=== PATIENT | female | born 1990 | race Caucasian/White ===

== ENCOUNTER 2016-08-11 03:29 | Emergency (ER) | payer OTHER | END 2016-08-11 08:00 | disposition home or self-care (01) | LOC: ER1 03:29 | DX: L40.0 Psoriasis vulgaris (principal); I10 Essential (primary) hypertension | CPT/HCPCS: 99282 ==

== ENCOUNTER 2020-06-12 23:55 | Emergency (ER) | payer OTHER ==
[~2020-06-12 23:55] MED LIST: ASPIRIN CHEWABL81 MG PO; BENTYL 20MG TAB20 MG PO; HYDROCHLOROTH12.5 M1 PO; HYDROCHLOROTHIA25 MG PO; KEFLEX CAP 500500 MG PO; LODINE CAP 300300 MG PO; MACROBID 100 M100 MG PO; NORCO 7.5-3251 EACH PO; ZOFRAN ODT 4 MG4 MG PO; ZOLOFT25 MG PO
[2020-06-13 00:24] LABS: HEMOGLOBIN 12.2 gm/dl (12.3-15.3); RED BLOOD COUNT 4.79 M/UL (4.00-5.10); WHITE BLOOD COUNT 11.1 K/UL (4.5-11.0)
[2020-06-13 00:51] LABS: BUN/CREATININE RATIO 20 (0-10)
== END 2020-06-13 04:00 | disposition home or self-care (01) ==
LOC: ER1 23:55
PROVIDERS: Physician Assistant
DX: R07.9 Chest pain, unspecified (principal); I10 Essential (primary) hypertension; Z90.49 Acquired absence of other specified parts of digestive tract
CPT/HCPCS: 71045; 80053; 82550; 82553; 83874; 83880; 84484; 85025; 85379; 85610; 85730; 93005; 99285

== ENCOUNTER → 2020-07-18 | Outpatient (CLI) | payer OTHER | LOC: ECHO 09:00 | DX: R94.31 Abnormal electrocardiogram [ECG] [EKG] (principal) | CPT/HCPCS: ECHO; 93306 ==

== ENCOUNTER 2021-06-23 05:10 | Observation (INO) | payer OTHER ==
[~2021-06-23] VITALS: Ht 162.6 cm; Wt 122.9 kg
[2021-06-23 07:53] LABS: BORDETELLA PARAPERTUSSIS Not Detected (Not Detectd); BORDETELLA PERTUSSIS Not Detected (Not Detectd); CHLAMYDIA PNEUMONIAE Not Detected (Not Detectd); CORONAVIRUS HKU1 Not Detected (Not Detectd); CORONAVIRUS NL63 Not Detected (Not Detectd); CORONAVIRUS OC43 Not Detected (Not Detectd); CORONOAVIRUS 229E Not Detected (Not Detectd); HUMAN METAPNEUMOVIRUS Not Detected (Not Detectd); HUMAN RHINOVIRUS/ENTEROVIRUS Not Detected (Not Detectd); INFLUENZA A Not Detected (Not Detectd); INFLUENZA B Not Detected (Not Detectd); MYCOPLASMA PNEUMONIAE Not Detected (Not Detectd); PARAINFLUENZA VIRUS 1 Not Detected (Not Detectd); PARAINFLUENZA VIRUS 2 Not Detected (Not Detectd); PARAINFLUENZA VIRUS 3 Not Detected (Not Detectd); PARAINFLUENZA VIRUS 4 Not Detected (Not Detectd); RESPIRATORY SYNCYTIAL VIRUS Not Detected (Not Detectd)
[2021-06-23 07:58] LABS: HEMOGLOBIN 13.7 gm/dl (12.3-15.3); RED BLOOD COUNT 5.05 M/UL (4.00-5.10); WHITE BLOOD COUNT 11.6 K/UL (4.5-11.0)
[2021-06-23 08:22] LABS: BUN/CREATININE RATIO 14 (0-10)
[2021-06-23 08:59] LABS: SARS-CoV-2 NOT DETECTED (Not Detectd)
[2021-06-23] MEDS ORDERED: PROAIR HFA8.5 GM INH ×2 (12:31→17:27)
[2021-06-23] MEDS ORDERED: FEXOFENADINE H180 MG PO (12:31)
[2021-06-23] MEDS ORDERED: [UNRECOGNIZED DRUG - OTHER] PO (17:29)
[2021-06-24 06:17] LABS: HEMOGLOBIN 13.7 gm/dl (12.3-15.3); RED BLOOD COUNT 5.05 M/UL (4.00-5.10); WHITE BLOOD COUNT 11.9 K/UL (4.5-11.0)
[2021-06-24 06:43] LABS: BUN/CREATININE RATIO 11 (0-10)
[2021-06-24] MEDS ORDERED: LOPRESSOR 25 MG25 MG PO (12:40)
[2021-06-24] MEDS ORDERED: LISINOPRIL10 MG PO (12:40)
== END 2021-06-24 17:00 | disposition home or self-care (01) ==
LOC: ER1 05:10 → MED SURG 4 11:50 → CDU 11:50 → MED SURG 4 16:45
PROVIDERS: Emergency Medicine; Physician Assistant; ADMIT Internal Medicine
DX: J06.9 Acute upper respiratory infection, unspecified (principal); E86.0 Dehydration; R00.0 Tachycardia, unspecified; I10 Essential (primary) hypertension; R13.10 Dysphagia, unspecified; G47.33 Obstructive sleep apnea (adult) (pediatric); N39.0 Urinary tract infection, site not specified; F41.9 Anxiety disorder, unspecified; E66.01 Morbid (severe) obesity due to excess calories; Z68.42 Body mass index [BMI] 45.0-49.9, adult; Z20.822 Contact with and (suspected) exposure to COVID-19
CPT/HCPCS: 36415; 70491; 71045; 80053; 81001; 82550; 82553; 83735; 83880; 84484; 84703; 85025; 85379; 86403; 87040; 87081; 87086; 87633; 87880; 93005; 96374; 96375; 96376; 99285; C9113; G0378; J0360; J0696; J2920; J7030; Q9967

== ENCOUNTER 2021-07-19 18:03 | Emergency (ER) | payer OTHER ==
[~2021-07-19 18:03] MED LIST changes: +FEXOFENADINE H180 MG PO; +LISINOPRIL10 MG PO; +LOPRESSOR 25 MG25 MG PO; +PROAIR HFA8.5 GM INH; +[UNRECOGNIZED DRUG - OTHER] PO
[2021-07-19] MEDS ORDERED: IBUPROFEN600 MG PO (19:16)
[2021-07-19] MEDS ORDERED: ZYRTEC10 MG PO (19:16)
[2021-07-19] MEDS ORDERED: AMOX TR-K CLV1 EAC4 PO (19:16)
== END 2021-07-19 19:34 | disposition home or self-care (01) ==
LOC: ER1 18:03
DX: J32.8 Other chronic sinusitis (principal); I10 Essential (primary) hypertension
CPT/HCPCS: 99283

== ENCOUNTER 2021-08-03 22:17 | Emergency (ER) | payer OTHER ==
[~2021-08-03 22:17] MED LIST changes: +AMOX TR-K CLV1 EAC4 PO; +IBUPROFEN600 MG PO; +ZYRTEC10 MG PO
[2021-08-03 23:26] LABS: HEMOGLOBIN 13.5 gm/dl (12.3-15.3); RED BLOOD COUNT 4.88 M/UL (4.00-5.10); WHITE BLOOD COUNT 9.2 K/UL (4.5-11.0)
[2021-08-03 23:50] LABS: BUN/CREATININE RATIO 14 (0-10)
== END 2021-08-04 01:25 | disposition home or self-care (01) ==
LOC: ER1 22:17
PROVIDERS: Physician Assistant Medical
DX: R07.89 Other chest pain (principal); K21.9 Gastro-esophageal reflux disease without esophagitis; I10 Essential (primary) hypertension; Z90.49 Acquired absence of other specified parts of digestive tract
CPT/HCPCS: 71045; 80053; 82550; 82553; 84484; 85025; 85379; 93005; 96374; 99285; J1885

== ENCOUNTER 2021-09-12 15:57 | Emergency (ER) | payer OTHER ==
[2021-09-12 16:35] LABS: HEMOGLOBIN 12.8 gm/dl (12.3-15.3); RED BLOOD COUNT 4.63 M/UL (4.00-5.10); WHITE BLOOD COUNT 9.4 K/UL (4.5-11.0)
[2021-09-12 16:59] LABS: BUN/CREATININE RATIO 21 (0-10)
== END 2021-09-12 19:51 | disposition home or self-care (01) ==
LOC: ER1 15:57
DX: R07.89 Other chest pain (principal); R00.2 Palpitations; K21.9 Gastro-esophageal reflux disease without esophagitis; I10 Essential (primary) hypertension
CPT/HCPCS: 71045; 80053; 81001; 82550; 82553; 83605; 83690; 84439; 84443; 84484; 84703; 85025; 85379; 93005; 99285